=== PATIENT | female | born 1945 | race Caucasian/White ===

== ENCOUNTER 2020-05-10 10:02 | Emergency (ER) | payer MEDICARE, BC ==
[2020-05-10] MEDS: Aspirin 81 MG Tab.Chew PO ONE (10:35)
--- NOTE | 2020-05-10 10:38 | EDM.PDOC ---
ED HPI GENERAL MEDICAL PROBLEM - General Chief Complaint: Cardiovascular Problem Stated Complaint: CP, FATIGUE, PRESSURE Time Seen by Provider: 05/10/20 10:30 Source of Information: Reports: Patient History Limitations: Reports: No Limitations - History of Present Illness INITIAL COMMENTS - FREE TEXT/NARRATIVE: She presents to the emergency department by private vehicle for evaluation of chest pressure. Yesterday she woke up from a nap with 7/10 chest pain and a pressure like someone sitting on her chest. There was no nausea or vomiting. No radiation. No dizziness or lightheadedness. Pain was present the rest of the day. When she woke up this morning the pain was gone but she still complains of some pressure on the chest. No shortness of breath. No difficulty breathing. No cough. No radiating pain. No numbness or tingling. She does have a history of atrial fibrillation for the last year or so. She is on Eliquis. No fever or chills. No nasal congestion. No sore throat. No abdominal pain. No nausea, vomiting or diarrhea. No other recent illness. No known exposures. She has had similar episodes to this in the past they usually resolve fairly quickly. Chest Pain Score (Numeric/FACES): 2 - Related Data Allergies Allergy/AdvReac Type Severity Reaction Status Date / Time codeine Allergy Nausea and Verified 05/10/20 10:33 Vomiting Home Meds: Home Meds Apixaban [Eliquis] 5 mg PO BID 05/10/20 [History] Lisinopril/Hydrochlorothiazide [Lisinopril-Hctz 10-12.5 mg Tab] 1 each PO DAILY 05/10/20 [History] Metoprolol Succinate 25 mg PO DAILY 05/10/20 [History] Simvastatin 40 mg PO BEDTIME 05/10/20 [History] ED ROS GENERAL - Review of Systems Review Of Systems: See Below Constitutional: Denies: Fever, Chills HEENT: Denies: Ear Pain, Sinus Problem, Throat Pain, Vertigo Respiratory: Denies: Shortness of Breath, Wheezing, Pleuritic Chest Pain, Cough Cardiovascular: Reports: Other (She does complain of chest heaviness.). Denies: Chest Pain, Dyspnea on Exertion, Palpitations Endocrine: Denies: Fatigue GI/Abdominal: Denies: Abdominal Pain, Diarrhea, Nausea, Vomiting : Denies: Dysuria, Frequency, Urgency Neurological: Denies: Confusion, Dizziness, Headache, Numbness, Tingling Psychiatric: Denies: Anxiety, Depression ED EXAM, GENERAL - Physical Exam Exam: See Below Exam Limited By: No Limitations General Appearance: Alert, WD/WN, No Apparent Distress Ears: Normal External Exam, Normal Canal, Normal TMs Nose: Normal Inspection, Normal Mucosa Throat/Mouth: Normal Inspection, Normal Lips, Normal Gums, Normal Oropharynx Head: Atraumatic, Normocephalic Neck: No: Lymphadenopathy (L), Lymphadenopathy (R) Respiratory/Chest: No Respiratory Distress, Lungs Clear, Normal Breath Sounds Cardiovascular: No Murmur, Tachycardia, Irregularly Irregular GI/Abdominal: Normal Bowel Sounds, Soft, Non-Tender, No Mass Neurological: Alert, Oriented Psychiatric: Normal Affect, Normal Mood Skin Exam: Warm, Dry #1 Interpretation EKG Date: 05/10/20 Time: 10:30 Rhythm: A-Fib Rate (Beats/Min): 104 [place]: Normal QRS: Normal ST-T: Normal QT: Normal (Atrial fibrillation. No obvious ischemia.) Course - Vital Signs Last Recorded V/S: Last Vital Signs Temp 36.7 C 05/10/20 10:11 Pulse 120 H 05/10/20 10:11 Resp 14 05/10/20 10:11 BP 113/88 05/10/20 10:46 Pulse Ox 100 05/10/20 10:11 - Orders/Labs/Meds Orders: Active Orders 24 hr Category Date Time Status Cardiac Monitoring [RC] . DIRECTED Care 05/10/20 10:28 Active EKG Documentation Completion [RC] ASDIRECTED Care 05/10/20 10:27 Active CXR [Chest 2V] [CR] Stat Exams 05/10/20 10:27 Taken Nitroglycerin [Nitrostat] Med 05/10/20 10:31 Active 0.4 mg SL Q5M PRN Sodium Chloride 0.9% [Saline Flush] Med 05/10/20 10:29 Active 10 ml FLUSH ASDIRECTED PRN Saline Lock Insert [OM.PC] Routine Oth 05/10/20 10:29 Ordered Medication Orders Nitroglycerin (Nitrostat) 0.4 mg SL Q5M PRN PRN Reason: Chest Pain Last Admin: 05/10/20 10:46 Dose: 0.4 mg Documented by: FREEDAR Sodium Chloride (Saline Flush) 10 ml FLUSH ASDIRECTED PRN PRN Reason: Keep Vein Open Last Admin: 05/10/20 10:39 Dose: 10 ml Documented by: ANSLEY Labs: Laboratory Tests 05/10/20 05/10/20 05/10/20 Range/Units 10:25 10:25 10:25 WBC 12.1 H (4.0-10.2) K/uL RBC 5.49 H (3.77-5.09) M/uL Hgb 16.9 H (11.7-15.5) g/dL Hct 50.5 H (34.0-46.0) % MCV 92.0 (84.0-98.0) fL MCH 30.8 (28.2-33.3) pg MCHC 33.5 (31.7-36.0) g/dL RDW 14.3 H (11.2-14.1) % Plt Count 191 (150-350) K/uL Neut % (Auto) 71.6 (45.0-80.0) % Lymph % (Auto) 16.0 (10.0-50.0) % [place] % (Auto) 11.3 (2.0-14.0) % Eos % (Auto) 1.0 (0.0-5.0) % Baso % (Auto) 0.1 (0.0-2.0) % Neut # (Auto) 8.67 H (1.40-7.00) K/uL Lymph # (Auto) 1.93 (0.50-3.50) K/uL [place] # (Auto) 1.37 H (0.00-1.00) K/uL Eos # (Auto) 0.12 (0.00-0.50) K/uL Baso # (Auto) 0.01 (0.00-0.20) K/uL PT 12.2 H (9.5-12.0) SEC INR 1.2 Sodium 137 (136-145) mmol/L Potassium 3.9 (3.5-5.1) mmol/L Chloride 100 (98-107) mmol/L Carbon Dioxide 25.5 (21.0-32.0) mmol/L BUN 27 H (7-18) mg/dL Creatinine 1.16 (0.51-1.17) mg/dL Est Cr Clr Drug Dosing TNP Estimated GFR (MDRD) 45 mL/min Glucose 108 H (74-106) mg/dL Calcium 9.2 (8.5-10.1) mg/dL Total Bilirubin 1.2 H (0.2-1.0) mg/dL AST 20 (15-37) U/L ALT 35 (12-78) U/L Alkaline Phosphatase 81 (46-116) IU/L Troponin I 0.004 (0.000-0.056) ng/mL Total Protein 7.4 (6.4-8.2) g/dL Albumin 3.8 (3.4-5.0) g/dL Meds: Medications Generic Name Dose Route Start Last Admin Trade Name Freq PRN Reason Stop Dose Admin Nitroglycerin 0.4 mg 05/10/20 10:31 05/10/20 10:46 Nitrostat SL 0.4 mg Q5M PRN Administration Chest Pain Sodium Chloride 10 ml 05/10/20 10:29 05/10/20 10:39 Saline Flush FLUSH 10 ml ASDIRECTED PRN Administration Keep Vein Open Discontinued Medications Generic Name Dose Route Start Last Admin Trade Name Freq PRN Reason Stop Dose Admin Aspirin 324 mg 05/10/20 10:30 05/10/20 10:35 Aspirin PO 05/10/20 10:31 324 mg ONETIME ONE Administration - Radiology Interpretation Free Text/Narrative:: 2 views of the chest show normal cardiac silhouette. Lungs are well-expanded. No infiltrates. No free air. - Re-Assessments/Exams Free Text/Narrative Re-Assessment/Exam: 05/10/20 11:20 Patient remained completely stable throughout the emergency department visit. She did have some mild pressure in the chest but denied any pain. Troponin was negative. EKG showed no acute changes. Appears very low risk for acute cardiac event. She does have a strong family history of heart attacks most of the people are in their 90s. We will discharged home with close monitoring. Departure - Departure Time of Disposition: 11:21 Disposition: Home, Self-Care 01 Condition: Good Clinical Impression: Chest discomfort Referrals: India Pruett NP [Primary Care Provider] - Forms: ED Department Discharge Additional Instructions: Continue to monitor the chest discomfort. Return the emergency department if she develops more severe chest pain. Can try an [id number] antacid such as Zantac or Prilosec for a possible GI etiology. Follow-up with cardiology next Tuesday as scheduled. Sepsis Event Note (ED) - Evaluation Sepsis Screening Result: No Definite Risk - Focused Exam Vital Signs: Vital Signs Temp Pulse Resp BP BP Pulse Ox 05/10/20 10:46 113/88 05/10/20 10:11 36.7 C 120 H 14 120/84 100 - My Orders Last 24 Hours: My Active Orders 05/10/20 10:27 EKG Documentation Completion [RC] ASDIRECTED CXR [Chest 2V] [CR] Stat 05/10/20 10:28 Cardiac Monitoring [RC] . DIRECTED 05/10/20 10:29 Sodium Chloride 0.9% [Saline Flush] 10 ml FLUSH ASDIRECTED PRN Saline Lock Insert [OM.PC] Routine 05/10/20 10:31 Nitroglycerin [Nitrostat] 0.4 mg SL Q5M PRN - Assessment/Plan Last 24 Hours: My Active Orders 05/10/20 10:27 EKG Documentation Completion [RC] ASDIRECTED CXR [Chest 2V] [CR] Stat 05/10/20 10:28 Cardiac Monitoring [RC] . DIRECTED 05/10/20 10:29 Sodium Chloride 0.9% [Saline Flush] 10 ml FLUSH ASDIRECTED PRN Saline Lock Insert [OM.PC] Routine 05/10/20 10:31 Nitroglycerin [Nitrostat] 0.4 mg SL Q5M PRN
[2020-05-10] MEDS: Sodium Chloride 0.9% 10 ML Syringe FLUSH PRN (10:39)
[2020-05-10] MEDS: Nitroglycerin 0.4 MG Tab.SL SL PRN (10:46)
[2020-05-10 10:47] LABS: CHLORIDE,CL 100 mmol/L (98-107); SODIUM,NA 137 mmol/L (136-145)
[2020-05-10 11:24] VITALS: BP 89/64; PULSE 110
== END 2020-05-10 11:40 | disposition home or self-care (01) ==
LOC: LL.ED 10:02
DX: R07.89 Other chest pain (principal); I48.91 Unspecified atrial fibrillation; Z88.5 Allergy status to narcotic agent; Z79.01 Long term (current) use of anticoagulants; Z79.899 Other long term (current) drug therapy
CPT/HCPCS: 36415; 71046; 80053; 84484; 85025; 85610; 93005; 99285-25; A9270-GY